=== PATIENT | female | born 1960 | race Caucasian/White ===

== ENCOUNTER 2017-06-26 08:30 | Outpatient (CLI) | payer BC, MEDICARE ==
[2017-06-26 10:38] LABS: #Basophils 0.1 thou/uL (0.0-0.2); #Eosinphils 0.3 thou/uL (0.0-0.7); #Lymphocytes 1.5 thou/uL (1.20-3.40); #Monocytes 0.3 thou/uL (0.11-0.59); #Neutrophils 2.9 thou/uL (1.40-6.50); %Basophils 1.2 % (0.0-1.0); %Eosinophils 6.4 % (0.0-10.0); %Lymphocytes 29.4 % (21.0-51.0); %Monocytes 6.2 % (0.0-10.0); Hematocrit 44.3 % (36.0-47.0); Mean Platelet Volume 8.5 fL (7.4-10.4); Red Blood Cell (RBC) Count 5.14 mill/uL (4.20-5.40)
[2017-06-26 11:00] LABS: Anion Gap 14 mmol/L (10-20); BUN (Urea Nitrogen) 25 mg/dL (9.8-20.1); Calc. Creatinine Clearance 0 mL/min (70-130); Calcium 9.8 mg/dL (7.8-10.44); Carbon Dioxide 28 mmol/L (22-29); Chloride 103 mmol/L (98-107); Estimated GFR-MDRD 71
== END 2017-06-26 08:31 | disposition home or self-care (01) ==
LOC: LABBT 08:30
PROVIDERS: ATTEND Neurological Surgery
DX: Z01.812 Encounter for preprocedural laboratory examination (principal); M43.16 Spondylolisthesis, lumbar region
CPT/HCPCS: 80048; 85025; 85610; 85730; 93005; 93010

== ENCOUNTER 2017-06-26 08:30 | Inpatient (IN) | payer BC, MEDICARE ==
--- NOTE | 2017-06-24 08:35 | HP ---
HISTORY OF PRESENT ILLNESS: Ms. Rosario is a 57-year-old female who presents with low back pain an d left-sided numbness, tingling and pain in the L5 dermatome. She has had this pain for about 2 year s, but the pain has gotten worse over the past 4 months. She has been walking with a cane for suppor t for about 3 years. She has had [address] Harris over the past 2 years , which had helped with some of the back pain. On exam I did not appreciate any weakness in the left leg on exam and she has some relief of pain whe n taking analgesics and gabapentin. The pain is exacerbated with standing, walking and lying flat. She has had a right hemilaminectomy and microdiskectomy with Dr. Barry in 03/2013. IMAGING: MRI of the lumbar spine and flexion, extension x-rays from [facility]. REVIEW OF SYSTEMS: Ten-point review of systems completed, is otherwise negative unless stated in the above HPI. PAST MEDICAL HISTORY: Retinopathy, heart trouble, chest pain, thyroid, diabetes mellitus, heartburn, reflux, IBS, knee pain, asthma, osteoarthritis, hip pain, gastroparesis and depression. PAST SURGICAL HISTORY: Right hemilaminectomy at L4-L5 with microdiskectomy [place] [address] Edvin field. Cataracts left eye and extricated blood from eye. HOSPITALIZATIONS: Diabetic ketoacidosis. FAMILY HISTORY: Father is at 56 years old. Mother is alive at 74 years old. She has [address] They have a family history of heart disease, hypertension, arthritis, and low back pain. SOCIAL HISTORY: The patient is a nonsmoker. She does not use tobacco or alcohol or any illicit drug s. 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 No alcohol or nicotine use reported. MEDICATIONS: 1. Sertraline HCL 100 mg tablet 1 tablet orally once a day. 2. Lyrica 75 mg capsule 1 capsule in the a.m. and 2 in the p.m. 3. Singulair 10 mg tablet orally. 4. Albuterol sulfate HFA. 5. Celebrex 200 mg capsule 1 capsule orally twice a day. 6. Vitamin D. 7. Humalog. 8. Invokana 300 mg tablet 1 tablet orally once daily. 9. Dexilant 60 mg capsule delayed release. 10. Furosemide 40 mg tablet 1 tablet orally once a day. 11. Topamax 500 mg tablet 1 tablet orally 3 times a day. 12. Atorvastatin calcium 40 mg tablet 1 tablet orally once a day. 13. Limbrel 500 mg capsule 1 capsule orally q.12 hours. ALLERGIES: SULFA DRUGS. PHYSICAL EXAMINATION: HEENT: Normocephalic, atraumatic. Hearing intact. Moist mucous membranes. Trachea is midline. EYES: Pupils are equal and reactive to light. Extraocular muscles are intact. Sclerae is white, no nicteric. PSYCHIATRIC: Normal mood and affect. CARDIOVASCULAR/CARDIOPULMONARY: Regular rate and rhythm, normal S1, S2 heart sounds. No distal cya nosis or clubbing noted. Intact pedal pulses bilaterally. MUSCULOSKELETAL: Lower extremities, 5/5 strength in bilateral iliopsoas, quadriceps, hamstrings, rig ht tibialis anterior and extensor hallucis longus. Sensory deficits in the left L5 dermatome tender to palpation in the midline lumbar spine and over the bilateral SI joints. RESPIRATORY: Even respirations, good effort all lung gavin are clear with no wheezing or crackles. NEUROLOGIC: Cranial nerves II-XII are grossly intact. Speech is fluent. She answers my questions a ppropriately. The patient has antalgic gait and station and walks with a cane. ASSESSMENT: 1. Spondylolisthesis, lumbar region. 2. Lumbar radiculopathy, lumbago with sciatica, left side. 3. Chronic pain. PLAN: Dr. Barry offered a redo laminectomy and TLIF at L4-L5 for her leg and spondylolisthesis. She also has a synovial cyst. We reviewed the risks, benefits, and possible complications of sharlar y with Ms. Rosario and she understands the risks fully and would like to proceed with the operation .
[2017-06-26 08:58] VITALS: BMI 41.1
[2017-06-30] MEDS ORDERED: CEFAZOLIN/Water 2 GM/20 ML SYRINGE ONE (05:58)
[2017-06-30] MEDS ORDERED: Sodium Chloride 0.9% 20 ML ONE (06:17)
[2017-06-30] MEDS ORDERED: Thrombin 5000 UNITS/5 ML VIAL ONE (06:17)
[2017-06-30] MEDS ORDERED: Clindamycin/D5W 900 mg/50 ml Premix Bag ONE ×2 (06:26→13:50)
[2017-06-30] MEDS ORDERED: Levofloxacin 500 mg/D5W 100 ml Premix Bag ONE (06:27)
[2017-06-30] MEDS ORDERED: Midazolam HCl 2 mg/2 ml Vial ONE (06:35)
[2017-06-30] MEDS ORDERED: Famotidine/PF 20 mg/2ml Vial ONE (06:45)
[2017-06-30] MEDS ORDERED: Phenylephrine 10 MG/NS 250 ML 250 ML ONE (06:45)
[2017-06-30] MEDS ORDERED: Albumin 5% 500 ML ONE (06:45)
[2017-06-30] MEDS ORDERED: Fentanyl 250 MCG/5 ML VIAL ONE (06:58)
[2017-06-30] MEDS ORDERED: Bupivacaine/Epinephrine 0.25% 30 ML VIAL ONE (07:44)
[2017-06-30] MEDS ORDERED: Insulin Regular 300 UNITS/3 ML VIAL ONE (09:02)
[2017-06-30] MEDS ORDERED: PHENYLEPHRINE-NS 100 MCG/ML 10 ML SYRINGE ONE ×2 (09:53→17:01)
[2017-06-30] MEDS ORDERED: Meperidine HCl/PF 25 MG/ML VIAL SLOW IVP PRN (10:01)
[2017-06-30] MEDS ORDERED: Promethazine HCl 25 MG/ML VIAL IM PRN (10:01)
[2017-06-30] MEDS ORDERED: Morphine Sulfate 2 MG/ML SYRINGE SLOW IVP PRN (10:01)
[2017-06-30] MEDS ORDERED: HYDROmorphone 2 MG/ML VIAL SLOW IVP PRN (10:01)
[2017-06-30] MEDS ORDERED: Ondansetron HCl/PF 4 MG/2 ML Vial IVP PRN ×2 (10:01→11:26)
[2017-06-30] MEDS ORDERED: Promethazine HCl 25 MG/ML VIAL SLOW IVP PRN (10:01)
[2017-06-30] MEDS ORDERED: Morphine 4 MG/ML VIAL SLOW IVP PRN ×2 (11:26)
[2017-06-30] MEDS ORDERED: Acetaminophen/Codeine 30-300mg Tablet PO PRN (11:26)
[2017-06-30] MEDS ORDERED: Cyclobenzaprine 10 MG TAB PO PRN (11:26)
[2017-06-30] MEDS ORDERED: SUBCUTANEOUS INSULIN PUMP MC SCH (11:30)
[2017-06-30] MEDS ORDERED: Albuterol Sulfate 2.5 mg/3 ml Neb NEB PRN (11:30)
[2017-06-30] MEDS ORDERED: Fentanyl 100 MCG/2 ML VIAL ONE ×2 (11:56→12:15)
--- NOTE | 2017-06-30 12:50 | OP ---
DATE OF SURGERY: 06/30/2017 SURGEON: Stef Barry M.D. MAIL SORTING SUPERVISOR: Tobias Abel PA-C. PREOPERATIVE INDICATION: Prevent neurological deterioration. PREOPERATIVE DIAGNOSES: Prior L4-L5 surgery for synovial cyst, L4-L5 unstable spondylolisthesis with intermittent L5 radiculopathies. POSTOPERATIVE DIAGNOSES: Prior L4-L5 surgery for synovial cyst, L4-L5 unstable spondylolisthesis with intermittent L5 radiculopathies. OPERATIVE PROCEDURES: Reopening lumbar incision, repeat laminectomy, and foraminotomy L4-L5, transforaminal lumbar interbody arthrodesis L4-L5, placement of intervertebral biomechanical device L4-L5, pedicle screw and natasha instrumentation L4-L5, posterolateral arthrodesis L4-L5, local morselized autograft, morselized allograft, and operating microscope. PREOPERATIVE MEDICATIONS: Ancef 2 grams IV. DRAIN NUMBER: Zero. DRAIN TYPE: None. OPERATIVE DICTATION: The patient was brought to the operating room. General endotracheal anesthesia was induced. The patient was positioned prone on the Arun frame with her head, chest, and hips supported by appropriate attachments for the Arun frame. A lateral fluoro radiograph confirmed that the previous incision would give us access to the L4-5 segments of the lumbar spine. The lumbar skin was sterilely prepped and draped. We reopened the previous incision and extended superiorly. We controlled bleeding with bipolar and monopolar cautery. We used monopolar cautery to dissect through subcutaneous scar tissue to the thoracodorsal fascia. We incised the fascia in the midline and reflected the paraspinal muscles off the spinous process and lamina of L4 and L5. A self-retaining retractor was placed. A lateral fluoro radiograph confirmed the levels upon which we were operating. We then carried our dissection over the L3-L4 and L4-L5 facet joints laterally to expose the L4 and L5 transverse processes on both sides. We used an Adson rongeur to remove the remnant of L4 lamina. We removed the superior portion of L5 lamina. Kerrison rongeurs were used to fashion a complete laminectomy. Posterior elements were removed at L4 until we decompressed all the way into the foramen on both sides with L4 nerve roots and L5 nerve roots were decompressed. Medial facetectomies at L4-L5 and we performed foraminotomies over those roots. With the neural elements well decompressed, we turned our attention to the spinal instability. Through the left L4-L5 foramen, we accessed the intervertebral space. We incised the disk space and removed disk contents using curettes and rongeurs. The operating microscope was used for the end of our decompression and the beginning of arthrodesis. We continued with microsurgical techniques to remove the intervertebral disk. We prepared the endplates for grafting with curettes and a bone rasp, and we measured the height of the interspace to 11 mm. An 11-mm PEEK graft was brought into the field. Our laminectomy bone was carefully morselized on the back table after all soft tissue was removed and the morselized bone added to demineralized bone matrix as our fusion substrate. This substrate was placed in the center of the PEEK graft and the PEEK graft was advanced into the interspace under radiographic guidance to the appropriate depth. We turned our attention to pedicle screw instrumentation. The operating microscope was taken out of the field. Using bony anatomic landmarks, palpation of the medial portion of the pedicles and a lateral fluoro radiograph as guidance, we chose entry points for pedicle screws at L4 and L5. We advanced these entry points using a bone awl into the vertebral bodies. We tapped the trajectories and found them completely encased in bone. We placed 6.5-mm diameter screws into L4 and L5 and generated a 360- degree image set using isocentric C-arm. Imaging confirmed adequate position of our pedicle screw instrumentation. We then irrigated copiously with bacitracin irrigation. We decorticated the transverse processes of L4 and L5 bilaterally and left demineralized bone matrix and morselized autograft over the decorticated bone as are posterolateral fusion substrate. The rods were brought in the screw heads and caps were tightened over the rods. We used gentle compression across the interspace to keep our interbody graft in place. Using a [id number] mechanism, we ensured adequate tightness of our caps. We checked all 4 nerve roots and found them still well decompressed. We irrigated copiously with bacitracin irrigation in the center of the wound. We applied vancomycin powder, and we closed the wound in anatomic layers. We applied a sterile dressing. This was a clean case and no contamination. RITESH
[2017-06-30] MEDS: Sodium Chloride 0.9% 1,000 ML IV SCH (13:05)
[2017-06-30] MEDS ORDERED: Morphine 4 MG/ML VIAL ONE (13:27)
[2017-06-30] MEDS: Clindamycin/D5W 900 MG in Premix Bag 1 BAG IVPB SCH ×2 (13:56→21:16)
[2017-06-30] MEDS ORDERED: Metoclopramide HCl 10 MG TAB PO SCH ×2 (15:00→18:45)
[2017-06-30] MEDS ORDERED: Acetaminophen/Codeine 30-300mg Tablet ONE ×2 (15:40→15:41)
[2017-06-30] MEDS: Topiramate 100 MG TAB PO SCH ×2 (15:47→21:16)
[2017-06-30] MEDS: Acetaminophen/Codeine 30-300mg Tablet PO PRN ×3 (15:47→22:16)
[2017-06-30] MEDS ORDERED: Propofol 200 MG/20 ML VIAL ONE (17:01)
[2017-06-30] MEDS ORDERED: Dexamethasone 20 MG/5 ML VIAL ONE (17:01)
[2017-06-30] MEDS ORDERED: Ondansetron HCl/PF 4 MG/2 ML Vial ONE (17:01)
[2017-06-30] MEDS ORDERED: Lidocaine 1% PF 5 ML VIAL ONE (17:01)
[2017-06-30] MEDS ORDERED: ePHEDrine/0.9% NaCl/PF SYRINGE 50 mg/10 ml ONE (17:01)
[2017-06-30] MEDS ORDERED: Vecuronium 10 MG VIAL ONE (17:01)
[2017-06-30] MEDS ORDERED: Glycopyrrolate 0.2 MG/ML 5 ML SYRINGE ONE (17:01)
[2017-06-30] MEDS ORDERED: Metoclopramide HCl 10 MG/2 ML VIAL ONE (17:01)
[2017-06-30] MEDS ORDERED: [UNRECOGNIZED DRUG - OTHER] PO SCH (21:00)
[2017-06-30] MEDS: Pregabalin 75 MG CAP PO SCH (21:15)
[2017-06-30] MEDS: Losartan Potassium 25 MG TAB PO SCH (21:15)
[2017-06-30] MEDS: Montelukast Sodium 10 mg Tablet PO SCH (21:16)
[2017-07-01] MEDS: Sodium Chloride 0.9% 1,000 ML IV SCH ×3 (00:10→20:53)
[2017-07-01] MEDS: Acetaminophen/Codeine 30-300mg Tablet PO PRN ×5 (05:35→20:51)
[2017-07-01] MEDS: Levothyroxine Sodium 150 MCG TAB PO SCH (05:36)
--- NOTE | 2017-07-01 08:01 | PRG ---
DATE OF SERVICE: 07/01/2017 Ms. Rosario is a 57-year-old female who I saw in her room this morning. She is status post 1 day f rom a lumbar decompression and fusion. Overnight, there have been no acute events. Her vital signs have been stable. Her blood sugar is now well controlled that she has turned her insulin pump on. S he has gotten up several times to use the bathroom, walked to the bathroom. She has also received an LSO brace that she has in place for walking. I took the Medipore tape off of her incision this morn ing and had her nurse redress the incision. Incision was clean, dry, and intact with vertical mattre ss sutures. If she does well with physical therapy today I will put in discharge plan and she can go home this afternoon. If there are any further questions, please feel free to contact Neurosurgery.
--- NOTE | 2017-07-01 08:18 | PRG ---
DATE OF SERVICE: 07/01/2017 Ms. Rosario is 1 day out from redo decompression and fusion at L4-L5. Her legs feel better, but th e back is sore. She was able to ambulate yesterday with some assistance and a brace on and she has cristhian espinosa out of bed already this morning to go to the bathroom. Her dressing has been reapplied. Her v ital signs are stable. Neurologic function in lower extremities is normal. My plan for Ms. Omari motley is to have her diabetes managed by her primary care team or Family Medicine. I would like physical therapy to work with her today. When she is safe for activities of daily living she can be discharg ed. She is at high risk for perioperative infection given her body habitus and her diabetes. I am cristhian soares to continue the Levaquin once a day.
[2017-07-01] MEDS: Pregabalin 75 MG CAP PO SCH ×2 (08:43→20:50)
[2017-07-01] MEDS: Topiramate 100 MG TAB PO SCH ×3 (08:44→20:49)
[2017-07-01] MEDS: Loratadine 10 MG TAB PO SCH (08:45)
[2017-07-01] MEDS: Cholecalciferol (Vitamin D3) 400 UNITS TAB PO SCH (08:45)
[2017-07-01] MEDS: Lactinex Tablet PO SCH (08:45)
[2017-07-01] MEDS: Furosemide 40 MG TAB PO SCH (08:45)
[2017-07-01] MEDS: Metoclopramide HCl 10 MG TAB PO SCH ×3 (08:45→17:24)
[2017-07-01] MEDS ORDERED: (Canagliflozin [Invokana] 300 MG) PO SCH (09:00)
[2017-07-01] MEDS: Ketotifen Fumarate 0.025% Ophth Soln 5 ml Bottle L EYE SCH (12:50)
--- NOTE | 2017-07-01 13:34 | PDOC.PN ---
- Subjective Encounter Start Date: 07/01/17 Encounter Start Time: 08:00 Pt seen for management of medical comorbidities, including hypothyroidism. Denies chest pain, shortness of breath, fevers or chills. - Objective MAR Reviewed: Yes Vital Signs & Weight: Vital Signs (12 hours) Temp Pulse Resp BP Pulse Ox 07/01/17 11:35 98.1 F 73 12 115/73 98 07/01/17 08:45 98.5 F 76 16 97 07/01/17 07:35 98.5 F 76 16 115/74 97 07/01/17 04:10 98.2 F 77 16 103/67 97 Weight Weight 255 lb I&O: 06/30/17 07/01/17 07/02/17 06:59 06:59 06:59 Intake Total 1075 Balance 1075 Additional Labs: Accuchecks 06/30/17 06/30/17 06/30/17 10:24 09:44 09:01 POC Glucose 229 H 312 H 304 H Phys Exam - Physical Examination Morbid obesity HEENT: moist MMs, oral pharynx no lesions Neck: supple Respiratory: clear to auscultation bilateral Cardiovascular: RRR Gastrointestinal: soft, non-tender Musculoskeletal: pulses present s/p back surgery Neurological: moves all 4 limbs Psychiatric: normal affect Skin: no rash Dx/Plan (1) Hypothyroidism Code(s): E03.9 - HYPOTHYROIDISM, UNSPECIFIED Status: Chronic (2) Diabetes mellitus Code(s): E11.9 - TYPE 2 DIABETES MELLITUS WITHOUT COMPLICATIONS Status: Chronic (3) GERD (gastroesophageal reflux disease) Code(s): K21.9 - GASTRO-ESOPHAGEAL REFLUX DISEASE WITHOUT ESOPHAGITIS Status: Chronic (4) IBS (irritable bowel syndrome) Status: Chronic (5) Asthma Code(s): J45.909 - UNSPECIFIED ASTHMA, UNCOMPLICATED Status: Chronic - Plan PT/OT, out of bed/ambulate * . Continue synthroid. Pt has continuous glucose monitoring and insulin pump, continue. Asthma stable. Continue PPI. DVT prophylaxis and pain management per neurosurgery service. Review of Systems - Review of Systems Respiratory: negative: Cough, Dry, Shortness of Breath, Hemoptysis, SOB with Excertion, Pleuritic Pain, Sputum, Wheezing Cardiovascular: negative: Chest Pain, Palpitations, Orthopnea, Paroxysmal Noc. Dyspnea, Edema, Light Headedness - Medications/Allergies Allergies/Adverse Reactions: Allergies Allergy/AdvReac Type Severity Reaction Status Date / Time amoxicillin [Amoxicillin] Allergy Verified 06/26/17 09:01 Menno And Derivatives Allergy Verified 06/26/17 09:01 egg Allergy Verified 06/26/17 09:01 iodine Allergy Verified 06/26/17 09:01 latex Allergy Verified 06/26/17 09:01 sulfur [From Sulfur-8] Allergy Verified 06/26/17 09:01 Medications: Current Medications Acetaminophen/Codeine Phosphate (Tylenol #3) 1 tab PO Q3H PRN PRN Reason: Mild Pain (1-3) Acetaminophen/Codeine Phosphate (Tylenol #3) 2 tab PO Q3H PRN PRN Reason: Moderate Pain (4-6) Last Admin: 07/01/17 12:49 Dose: 2 tab Acidophilus (Floranex) 1 tab PO DAILY [facility] Last Admin: 07/01/17 08:45 Dose: 1 tab Albuterol Sulfate (Ventolin) 2.5 mg NEB TID PRN PRN Reason: ASTHMA Cholecalciferol (Vitamin D) 400 units PO DAILY [facility] Last Admin: 07/01/17 08:45 Dose: 400 units Cyclobenzaprine HCl (Flexeril) 10 mg PO Q8H PRN PRN Reason: Muscle Spasm Furosemide (Lasix) 40 mg PO DAILY [facility] Last Admin: 07/01/17 08:45 Dose: 40 mg Glucagon (Glucagon) 1 mg SC ONE PRN PRN Reason: ASDIR Stop: 07/10/17 11:31 Sodium Chloride (Normal Saline 0.9%) 1,000 mls @ 75 mls/hr IV .[id number] [facility] Last Admin: 07/01/17 00:10 Dose: Not Given Ketotifen Fumarate (Zaditor 0.025% Ophth Soln) 1 drop L EYE DAILY [facility] Last Admin: 07/01/17 12:50 Dose: 1 drop Levofloxacin (Levaquin) 500 mg PO 0600 [facility] Levothyroxine Sodium (Synthroid) 150 mcg PO 0600 [facility] Last Admin: 07/01/17 05:36 Dose: 150 mcg Loratadine (Claritin) 10 mg PO DAILY [facility] Last Admin: 07/01/17 08:45 Dose: 10 mg Losartan Potassium (Cozaar) 25 mg PO HS [facility] Last Admin: 06/30/17 21:15 Dose: 25 mg Metoclopramide HCl (Reglan) 5 mg PO 0800,1100,1700 [facility] Last Admin: 07/01/17 12:49 Dose: 5 mg Montelukast Sodium (Singulair) 10 mg PO QPM [facility] Last Admin: 06/30/17 21:16 Dose: 10 mg Morphine Sulfate (Morphine) 2 mg SLOW IVP Q1H PRN PRN Reason: Moderate Breakthrough Pain Last Admin: 06/30/17 13:28 Dose: 2 mg Morphine Sulfate (Morphine) 4 mg SLOW IVP Q1H PRN PRN Reason: Severe Breakthrough Pain (Baicalin/Catechin [ (Limbrel] 500 Mg)) 500 mg PO BID [facility] (Canagliflozin [ (Invokana] 300 Mg)) 300 mg PO DAILY [facility] (Subcutaneous Insulin Pump [ Insulin Pump] 1 Each ) 1 each ASDIR [facility] Ondansetron HCl (Zofran) 4 mg IVP Q6H PRN PRN Reason: Nausea Pantoprazole Sodium (Protonix) 40 mg PO DAILY [facility] Last Admin: 07/01/17 08:44 Dose: 40 mg Pregabalin (Lyrica) 75 mg PO BID [facility] Last Admin: 07/01/17 08:43 Dose: 75 mg Rosuvastatin Calcium (Crestor) 40 mg PO HS [facility] Last Admin: 06/30/17 21:15 Dose: 40 mg Sertraline HCl (Zoloft) 100 mg PO DAILY [facility] Last Admin: 07/01/17 08:45 Dose: 100 mg Sodium Chloride (Flush - Normal Saline) 10 ml IVF PRN PRN PRN Reason: Saline Flush Topiramate (Topamax) 50 mg PO TID [facility] Last Admin: 07/01/17 08:44 Dose: 50 mg
[2017-07-01] MEDS ORDERED: hydrALAZINE 20 MG/ML VIAL SLOW IVP PRN (13:38)
[2017-07-01] MEDS: Losartan Potassium 25 MG TAB PO SCH (20:50)
[2017-07-01] MEDS: Montelukast Sodium 10 mg Tablet PO SCH (20:50)
[2017-07-02] MEDS: Levothyroxine Sodium 150 MCG TAB PO SCH (06:09)
[2017-07-02] MEDS: Acetaminophen/Codeine 30-300mg Tablet PO PRN ×3 (06:11→20:47)
--- NOTE | 2017-07-02 06:52 | DIS ---
DATE OF ADMISSION: 06/30/2017 DATE OF DISCHARGE: 07/02/2017 ADMISSION DIAGNOSES: Prior L4-L5 surgery with synovial cyst, L4-L5 unstable spondylolisthesis and in termittent L5 radiculopathies. DISCHARGE DIAGNOSES: Prior L4-L5 surgery with synovial cyst, L4-L5 unstable spondylolisthesis and in termittent L5 radiculopathies. DISCHARGE CONDITION: The patient is stable. She is able to ambulate on her own in the hallway witho ut problems. She also has no problems in urinating and having bowel movements and tolerating a regul ar diet. CONSULTATIONS: Physical Therapy, [facility]. PROCEDURES: Reopening of the lumbar incision, repeat laminectomy and foraminotomy at L4-L5, transfor aminal lumbar interbody arthrodesis at L4-L5, placement of intervertebral biomechanical device at L4- L5, pedicle screw and natasha instrumentation L4-L5, posterior lateral arthrodesis at L4-L5, local morsel ized autograft, and local morselized allograft, and operating microscope. All images were taken intraoperatively. BRIEF HISTORY OF PRESENT ILLNESS: Ms. Rosario is a 57-year-old female who [facility] with low back pain and left-sided numbness, tingling, pain in the L5 dermatome. She has had the pain for about 2 years, but it has gotten worse in the past 4 months. She has had 2 radiofrequen cy ablations and she has modified her daily activities; however, none of these have helped permanentl y relieve her pain. She opted for neurosurgical intervention to help with her leg pain. HOSPITAL COURSE: Hospital course was unremarkable. She was able to tolerate regular diet, walk in [facility] with physical therapy and by herself. She has been able to walk to the restroom in her room by herself and to urinate and have bowel movement. The Internal Medicine doctors were consulted at the hospital to control her blood sugar. DISCHARGE PHYSICAL EXAMINATION: HEENT: Normocephalic, atraumatic. Hearing intact. Moist mucous membranes. Trachea midline. EYES: Pupils are equal and reactive to light. Extraocular muscles are intact. Sclerae is white, no nicteric. CARDIOVASCULAR: The patient has regular rate and rhythm, normal S1, S2 heart sounds. No distal cyan osis or clubbing. RESPIRATORY: The patient has bilateral symmetric chest rise. Appears to be in no shortness breath. NEUROLOGIC: Cranial nerves II-XII are grossly intact. Speech is fluent. She answers my questions a ppropriately. The pain in her legs is gone, whenever she is walking and she still has some incisiona l pain over the lumbar area. 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 She is to wear the LSO brace when si tting upright and ambulating. DIET: The patient can have a heart healthy diabetic diet. CURRENT MEDICATIONS: 1. Sertraline HCL 100 mg tablet 1 tablet oral once a day. 2. Lyrica. 3. Singulair. 4. Albuterol sulfate HFA. 5. Celebrex. 6. Vitamin D. 7. Humalog. 8. Invokana. 9. Dexilant. 10. Furosemide. 11. Topamax. 12. Atorvastatin calcium. 13. Limbrel.
--- NOTE | 2017-07-02 07:21 | PRG ---
DATE OF SERVICE: 07/02/2017 Ms. Rosario is here on her second postoperative day after decompression and fusion of lumbar spine. Yesterday her back was quite sore. Her oxygen saturation was done at 90% when she was put on oxyge n by nasal cannula. She is encouraged to use [place] and mobilize. Yesterday, Ms. Rosario did man age to get out in the hallway and walk around the nurses station. She used some stairs. She learned how to put on and off her back brace, get in and out of bed. She feels more comfortable going home today. She would like to wait until the lunch to see how she feels and I think that is reasonable. In the meantime, we will wean her off her oxygen. Her body habitus, her recent anesthesia and her na rcotic use are all conspiring to make her oxygen low, but hopefully with an incentive spirometry we c an get it back up.
[2017-07-02] MEDS: Ketotifen Fumarate 0.025% Ophth Soln 5 ml Bottle L EYE SCH (09:45)
[2017-07-02] MEDS: Metoclopramide HCl 10 MG TAB PO SCH ×3 (09:45→18:21)
[2017-07-02] MEDS: Furosemide 40 MG TAB PO SCH (09:46)
[2017-07-02] MEDS: Topiramate 100 MG TAB PO SCH ×3 (09:46→20:41)
[2017-07-02] MEDS: Pregabalin 75 MG CAP PO SCH ×2 (09:47→20:41)
[2017-07-02] MEDS: Cholecalciferol (Vitamin D3) 400 UNITS TAB PO SCH (09:47)
[2017-07-02] MEDS: Lactinex Tablet PO SCH (09:47)
[2017-07-02] MEDS: Loratadine 10 MG TAB PO SCH (09:48)
[2017-07-02] MEDS ORDERED: Docusate 100 MG CAP PO SCH (13:15)
[2017-07-02] MEDS: Sodium Chloride 0.9% 1,000 ML IV SCH (18:20)
[2017-07-02] MEDS: Losartan Potassium 25 MG TAB PO SCH (20:42)
[2017-07-02] MEDS: Montelukast Sodium 10 mg Tablet PO SCH (20:42)
[2017-07-02 20:50] VITALS: BP 96/60; TEMP 98
== END 2017-07-02 21:15 | disposition home or self-care (01) | DRG 460 ==
LOC: SURG A 06-30 05:44
PROVIDERS: ADMIT Neurological Surgery; ATTEND Neurological Surgery
PROC: 0SG00AJ Fusion of Lumbar Vertebral Joint with Interbody Fusion Device, Posterior Approach, Anterior Column, Open Approach (ICD-10-PCS; principal; 2017-06-30)
PROC: 0SB20ZZ Excision of Lumbar Vertebral Disc, Open Approach (ICD-10-PCS; 2017-06-30)
DX: M43.16 Spondylolisthesis, lumbar region (principal); Z68.41 Body mass index [BMI] 40.0-44.9, adult; I10 Essential (primary) hypertension; E66.01 Morbid (severe) obesity due to excess calories; F32.9 Major depressive disorder, single episode, unspecified; E11.9 Type 2 diabetes mellitus without complications; M71.30 Other bursal cyst, unspecified site; K21.9 Gastro-esophageal reflux disease without esophagitis; M19.90 Unspecified osteoarthritis, unspecified site; M54.16 Radiculopathy, lumbar region; E78.5 Hyperlipidemia, unspecified
CPT/HCPCS: 36416; 76001; A4216; C1713; C1768; G8978-GP-CK; G8979-GP-CK; G8980-GP-CK; J0131; J1100; J1815; J1956; J2001; J2250; J2270; J2405; J2704; J2765; J3010; J3370; J3490; P9045; S0028

== ENCOUNTER 2017-08-21 09:50 | Outpatient (CLI) | payer BC, MEDICARE | END 2017-08-21 09:51 | disposition home or self-care (01) | LOC: BICRAD 09:50 | PROVIDERS: ATTEND Neurological Surgery | DX: M54.16 Radiculopathy, lumbar region (principal); M43.16 Spondylolisthesis, lumbar region; Z98.1 Arthrodesis status | CPT/HCPCS: 72100 ==

== ENCOUNTER 2017-11-27 08:35 | Outpatient (CLI) | payer BC, MEDICARE | END 2017-11-27 08:36 | disposition home or self-care (01) | LOC: BICRAD 08:35 | PROVIDERS: ATTEND Physician Assistant | DX: R05 Cough (principal) | CPT/HCPCS: 71046 ==

== ENCOUNTER 2018-09-14 15:22 | Outpatient (CLI) | payer BC, MEDICARE ==
--- NOTE | 2018-09-14 16:37 | BD ---
DEXA BONE DENSITY STUDY: HISTORY: Osteopenia. Prior surgery in lower back. TECHNIQUE: The lumbar spine was not scanned. LUMBAR SPINE MEAN BMD (g/cm2) T-SCORE RIGHT FEMORAL NECK 0.692 -1.4 TOTAL 0.900 -0.3 Evidence of osteopenia with increased risk for fracture. LEFT FEMORAL NECK 0.619 -2.1 TOTAL 0.824 -1.0 Evidence of osteopenia with increased risk for fracture. IMPRESSION: Femoral neck bone density has decreased when compared to the prior study of 09/06/2013, at which time the left femoral neck T-score was -0.6. Fracture score is not recorded because the patient is treat ed for osteoporosis. POS: TPC
== END 2018-09-14 15:23 | disposition home or self-care (01) ==
LOC: BICMAMMO 15:22
PROVIDERS: ATTEND Internal Medicine
DX: Z12.31 Encounter for screening mammogram for malignant neoplasm of breast (principal); M85.89 Other specified disorders of bone density and structure, multiple sites; R92.1 Mammographic calcification found on diagnostic imaging of breast; Z80.3 Family history of malignant neoplasm of breast
CPT/HCPCS: 77063; 77067; 77080

== ENCOUNTER 2020-02-15 08:01 | Outpatient (CLI) | payer BC, MEDICARE ==
--- NOTE | 2020-02-15 08:59 | BD ---
EXAM: DEXA bone density examination HISTORY: 59-year-old postmenopausal female for screening COMPARISON: 09/14/2018 FINDINGS: Right femoral neck--bone mineral density0.664; T score -1.7 Total proximal right femur--bone mineral density 0.890; T score -0.4 Left femoral neck--bone mineral density0.608; T score -2.2 Total proximal left femur--bone mineral density 0.787; T score -1.3 IMPRESSION: Osteopenia. When compared to the prior examination, the bone density in the left hip has decreased 4%.
--- NOTE | 2020-02-15 09:27 | MMO ---
Bilateral MAMMO Bilat Screen [facility]. CLINICAL HISTORY: Patient is 59 years old and is seen for screening. The patient has no family history of breast cancer. The patient has no personal history of cancer. VIEWS: The views performed were: bilateral craniocaudal with tomosynthesis and bilateral mediolateral oblique with tomosynthesis. FILMS COMPARED: The present examination has been compared to prior imaging studies performed at [facility] on 01/31/2015, 03/05/2016, 04/28/2017 and 09/14/2018. This study has been interpreted with the assistance of computer-aided detection. MAMMOGRAM FINDINGS: There are scattered fibroglandular densities. Benign calcifications are noted bilaterally. There are no suspicious masses, suspicious calcifications, or new areas of architectural distortion. IMPRESSION: THERE IS NO MAMMOGRAPHIC EVIDENCE OF MALIGNANCY. A ROUTINE FOLLOW-UP MAMMOGRAM IN 1 YEAR IS RECOMMENDED. THE RESULTS OF THIS EXAM WERE SENT TO THE PATIENT. ACR BI-RADS Category 2 - Benign finding MAMMOGRAPHY NOTE: 1. A negative mammogram report should not delay a biopsy if a dominant of clinically suspicious mass is present. 2. Approximately 10% to 15% of breast cancers are not detected by mammography. 3. Adenosis and dense breasts may obscure an underlying neoplasm. Reported by: GILBERTO MASON MD Electonically Signed: [id number]
== END 2020-02-15 08:02 | disposition home or self-care (01) ==
LOC: BICMAMMO 08:01
PROVIDERS: ATTEND Family Medicine
DX: Z12.31 Encounter for screening mammogram for malignant neoplasm of breast (principal); M81.0 Age-related osteoporosis without current pathological fracture; M85.852 Other specified disorders of bone density and structure, left thigh; M85.851 Other specified disorders of bone density and structure, right thigh
CPT/HCPCS: 77063; 77067; 77080

== ENCOUNTER 2020-08-07 08:21 | Outpatient (CLI) | payer BC, MEDICARE ==
--- NOTE | 2020-08-07 08:42 | RAD ---
XR Foot Lt 3 View STANDARD History: Pain Comparison: None. Findings: No acute displaced fracture or alignment. Fifth metatarsal tuberosity is intact. Moderate dorsal calcaneal spur. Mild demineralization. Moderate narrowing of the navicular intermediate cuneiform joint. The Lisfranc interval widening. Moderate vascular calcifications. Impression: Moderate degenerative change of the midfoot. No acute osseous abnormality.
== END 2020-08-07 08:22 | disposition home or self-care (01) ==
LOC: BICRAD 08:21
PROVIDERS: ATTEND Internal Medicine Rheumatology
DX: M79.672 Pain in left foot (principal); M19.072 Primary osteoarthritis, left ankle and foot

== ENCOUNTER 2020-10-30 08:10 | Outpatient (CLI) | payer BC, MEDICARE | END 2020-10-30 08:11 | disposition home or self-care (01) | LOC: BICRAD 08:10 | PROVIDERS: ATTEND Family Medicine | DX: M79.671 Pain in right foot (principal); M19.071 Primary osteoarthritis, right ankle and foot ==

== ENCOUNTER 2022-02-12 13:33 | Outpatient (CLI) | payer BC, MEDICARE | END 2022-02-12 13:34 | disposition home or self-care (01) | LOC: BICMRI 13:33 | PROVIDERS: ATTEND Family Medicine | DX: R51.9 Headache, unspecified (principal) | CPT/HCPCS: 70551 ==

== ENCOUNTER 2022-03-06 07:32 | Outpatient (CLI) | payer BC, MEDICARE | END 2022-03-06 07:33 | disposition home or self-care (01) | LOC: LABBT 07:32 | PROVIDERS: ATTEND Student in an Organized Health Care Education/Training Program | DX: Z01.818 Encounter for other preprocedural examination (principal); M31.6 Other giant cell arteritis; M51.9 Unspecified thoracic, thoracolumbar and lumbosacral intervertebral disc disorder; R70.0 Elevated erythrocyte sedimentation rate; E11.319 Type 2 diabetes mellitus with unspecified diabetic retinopathy without macular edema; Z20.822 Contact with and (suspected) exposure to COVID-19 | CPT/HCPCS: 85014; 87811; 93005; 93010 ==

== ENCOUNTER 2022-03-11 07:24 | Day surgery (SDC) | payer BC, MEDICARE ==
[2022-03-07 14:57] VITALS: BMI 41.5
[2022-03-11] MEDS ORDERED: Lidocaine 1% MPF 2 ML VIAL ONE (08:03)
[2022-03-11] MEDS ORDERED: Lidocaine 1% w/Epinephrine 1:200K 30 ML VIAL ONE (08:20)
[2022-03-11] MEDS ORDERED: Propofol 500 MG/50 ML VIAL ONE (08:50)
[2022-03-11] MEDS ORDERED: Lidocaine 2% 6 ML SYR ONE (08:50)
[2022-03-11] MEDS ORDERED: fentaNYL Citrate/PF 100 MCG/2 ML SYRINGE ONE (08:55)
[2022-03-11] MEDS ORDERED: Clindamycin/D5W 900 mg/50 ml Premix Bag ONE (09:27)
[2022-03-11] MEDS ORDERED: ePHEDrine 50 MG/ML VIAL ONE (09:35)
[2022-03-11] MEDS ORDERED: Ondansetron PF 4 MG/2 ML Vial ONE (09:35)
[2022-03-11] MEDS ORDERED: Bacitracin Zinc Ointment 30 gm TUBE ONE (10:15)
[2022-03-11] MEDS ORDERED: HYDROcodone/Acetaminophen 5/325 mg Tablet ONE (11:18)
== END 2022-03-11 12:00 | disposition home or self-care (01) ==
LOC: SDC 07:24
PROVIDERS: ATTEND Student in an Organized Health Care Education/Training Program
PROC: 03BS0ZX Excision of Right Temporal Artery, Open Approach, Diagnostic (ICD-10-PCS; principal; 2022-03-11)
DX: M31.6 Other giant cell arteritis (principal); R51.9 Headache, unspecified; R70.0 Elevated erythrocyte sedimentation rate; I10 Essential (primary) hypertension; E03.9 Hypothyroidism, unspecified; K21.9 Gastro-esophageal reflux disease without esophagitis; E11.43 Type 2 diabetes mellitus with diabetic autonomic (poly)neuropathy; K31.84 Gastroparesis; J45.909 Unspecified asthma, uncomplicated; L40.50 Arthropathic psoriasis, unspecified; M45.9 Ankylosing spondylitis of unspecified sites in spine; G89.29 Other chronic pain; M54.9 Dorsalgia, unspecified; E66.01 Morbid (severe) obesity due to excess calories; Z68.41 Body mass index [BMI] 40.0-44.9, adult; Z87.891 Personal history of nicotine dependence; Z79.1 Long term (current) use of non-steroidal anti-inflammatories (NSAID); Z79.52 Long term (current) use of systemic steroids; Z79.890 Hormone replacement therapy; Z79.4 Long term (current) use of insulin; Z79.899 Other long term (current) drug therapy; Z96.41 Presence of insulin pump (external) (internal); Z88.0 Allergy status to penicillin; Z91.040 Latex allergy status; Z91.041 Radiographic dye allergy status; Z88.2 Allergy status to sulfonamides; Z88.8 Allergy status to other drugs, medicaments and biological substances; Z91.012 Allergy to eggs; Z91.018 Allergy to other foods
CPT/HCPCS: 88305; C1776; J2405; J2704; J3490

== ENCOUNTER 2022-05-08 08:48 | Outpatient (CLI) | payer BC, MEDICARE | END 2022-05-08 08:49 | disposition home or self-care (01) | LOC: BICMAMMO 08:48 | PROVIDERS: ATTEND Family Medicine | DX: Z12.31 Encounter for screening mammogram for malignant neoplasm of breast (principal); N95.9 Unspecified menopausal and perimenopausal disorder; M85.851 Other specified disorders of bone density and structure, right thigh; M85.852 Other specified disorders of bone density and structure, left thigh; Z80.3 Family history of malignant neoplasm of breast | CPT/HCPCS: 77063; 77067; 77080 ==

== ENCOUNTER 2022-05-10 09:15 | Inpatient (IN) | payer BC, MEDICARE ==
[2022-05-10] MEDS ORDERED: Acetaminophen 500 MG TAB ONE (10:40)
[2022-05-10 11:57] LABS: SARS-CoV-2 NAA Rapid Test Not Detected (NotDetected)
[2022-05-10 13:06] LABS: Hemoglobin 13.4 g/dL (12.0-16.0); Mean Corpuscular HGB CONC 31.3 g/dL (32.0-36.0); Mean Corpuscular Hemoglobin 29.7 pg (27.0-31.0); Mean Corpuscular Volume 95.1 fL (78.0-98.0); Mean Platelet Volume 7.5 fL (7.4-10.4); Platelet Count 343 thou/uL (130-400); RBC Distribution Width 14.8 % (11.5-14.5); White Blood Cell (WBC) Count 24.6 thou/uL (4.8-10.8)
[2022-05-10 13:20] LABS: ALT (SGPT) 51 U/L (8-55); AST (SGOT) 37 U/L (5-34); Albumin 3.2 g/dL (3.5-5.0); Alkaline Phosphatase 108 U/L (40-110); Anion Gap 15 mmol/L (10-20); BUN (Urea Nitrogen) 16 mg/dL (9.8-20.1); Bilirubin, Total 0.4 mg/dL (0.2-1.2); Calc. Creatinine Clearance 0 mL/min (70-130); Calcium 9.2 mg/dL (7.8-10.44); Carbon Dioxide 25 mmol/L (22-29); Chloride 100 mmol/L (98-107); Estimated GFR 81; Globulin 3.7 g/dL (2.4-3.5); Glucose 156 mg/dL (70-105); Potassium 3.3 mmol/L (3.5-5.1); Protein, Total 6.9 g/dL (6.0-8.3); Sodium 137 mmol/L (136-145)
[2022-05-10 13:21] LABS: Band 16 % (5-11); Lymphocytes 5 % (21-51); MDiff Complete? YES; Monocytes 1 % (0-10); Neutrophil 77 % (42-75); Platelet Morphology Comment Appears Adequate; RBC Morphology Normal; Reactive Lymphocytes 1 % (0-10)
[2022-05-10] MEDS ORDERED: Potassium Chloride 20 MEQ TAB ONE (14:14)
[2022-05-10 14:47] LABS: Bacteria/HPF 4+ HPF (None Seen); Bilirubin Negative (Negative); Blood, Urine Trace (Negative); Clarity Turbid (Clear); Glucose, Urine (Dipstick) 300 mg/dL (Negative); Ketone, Urine Negative (Negative); Leukocyte 500 Leu/uL (Negative); Nitrite 2+ (Negative); Protein, Urine (Dipstick) Negative (Neg-Trace); Specific Gravity, Urine 1.011 (1.002-1.036); Squamous Epithelial 0-3 HPF (0-3); Urobilinogen Normal mg/dL (Less than 2); WBC/HPF 21-50 HPF (0-3)
[2022-05-10] MEDS ORDERED: Vancomycin 1 GM/200 ML BAG ONE (15:34)
[2022-05-10] MEDS ORDERED: Ondansetron ODT 4 MG TAB PO PRN (15:36)
[2022-05-10] MEDS ORDERED: Ondansetron PF 4 MG/2 ML Vial IVP PRN (15:36)
[2022-05-10] MEDS ORDERED: Meropenem 1 GM in Sterile Water 20 ML SLOW IVP SCH (15:45)
[2022-05-10] MEDS ORDERED: Dextrose 50% Abboject 50 ML SYRINGE SLOW IVP PRN (16:41)
[2022-05-10] MEDS ORDERED: Dextrose 5% in Water 1,000 ML IV PRN (16:41)
[2022-05-10 17:21] VITALS: BMI 40.7
[2022-05-10] MEDS: Sodium Chloride 0.9% 1,000 ML IV SCH ×2 (17:48)
[2022-05-10] MEDS ORDERED: Meropenem 1 GM in Sodium Chloride 0.9% 100 ML IVPB SCH (18:00)
[2022-05-10] MEDS: Acetaminophen 325 MG TAB PO PRN (20:35)
[2022-05-10] MEDS ORDERED: Ibuprofen 200 MG TAB PO PRN (22:29)
[2022-05-11] MEDS: Acetaminophen 325 MG TAB PO PRN ×2 (00:11→15:15)
[2022-05-11] MEDS ORDERED: Meropenem 1 GM in Sodium Chloride 0.9% 100 ML IVPB SCH (02:00)
[2022-05-11] MEDS: Sodium Chloride 0.9% 1,000 ML IV SCH ×5 (03:55→23:00)
[2022-05-11 06:58] LABS: #Lymphocytes 1.1 thou/uL (1.20-3.40); #Neutrophils 23.9 thou/uL (1.40-6.50); %Basophils 0.1 % (0.0-1.0); %Eosinophils 0.1 % (0.0-10.0); %Lymphocytes 4.1 % (21.0-51.0); %Neutrophils 91.8 % (42.0-75.0); Hemoglobin 12.8 g/dL (12.0-16.0); Mean Corpuscular HGB CONC 30.4 g/dL (32.0-36.0); Mean Corpuscular Hemoglobin 29.1 pg (27.0-31.0); Mean Corpuscular Volume 95.8 fL (78.0-98.0); Mean Platelet Volume 7.9 fL (7.4-10.4); Platelet Count 303 thou/uL (130-400); Red Blood Cell (RBC) Count 4.39 mill/uL (4.20-5.40); White Blood Cell (WBC) Count 26.1 thou/uL (4.8-10.8)
[2022-05-11 07:31] LABS: Anion Gap 13 mmol/L (10-20); BUN (Urea Nitrogen) 14 mg/dL (9.8-20.1); Calc. Creatinine Clearance 164 mL/min (70-130); Calcium 8.9 mg/dL (7.8-10.44); Carbon Dioxide 25 mmol/L (22-29); Chloride 104 mmol/L (98-107); Estimated GFR 101; Glucose 93 mg/dL (70-105); Potassium 4.2 mmol/L (3.5-5.1); Sodium 138 mmol/L (136-145)
[2022-05-11] MEDS: Enoxaparin Sodium 40 MG/0.4 ML SYRINGE SC SCH (09:01)
[2022-05-11] MEDS ORDERED: Ciprofloxacin HCL/Dexameth Otic Drops 7.5 ml Bottle R EAR SCH (10:15)
[2022-05-11] MEDS ORDERED: SUMAtriptan Succinate 50 MG TAB PO PRN (11:07)
[2022-05-11] MEDS ORDERED: SUMAtriptan Succinate 6 MG/0.5 ML VIAL SC SCH (11:15)
[2022-05-11] MEDS: Topiramate 25 MG TAB PO SCH ×3 (15:16→21:49)
[2022-05-11] MEDS: Ciprofloxacin HCL/Dexameth Otic Drops 7.5 ml Bottle R EAR SCH ×2 (15:17→21:37)
[2022-05-11] MEDS: Albuterol Sulfate 2.5 mg/0.5 ml Neb NEB SCH (18:57)
[2022-05-11] MEDS: Mometasone 200 MCG/Formoterol 5 MCG 120 PUFF INHALER INH SCH (18:58)
[2022-05-11] MEDS: Montelukast Sodium 10 mg Tablet PO SCH ×2 (21:38→21:50)
[2022-05-11] MEDS: Loratadine 10 MG TAB PO SCH ×2 (21:39→21:49)
[2022-05-11] MEDS: Pregabalin 75 MG CAP PO SCH ×2 (21:39→21:54)
[2022-05-11] MEDS: Rosuvastatin 20 MG TAB PO SCH ×2 (21:39→21:49)
[2022-05-11] MEDS: Lidocaine 5% Patch TD SCH (21:40)
[2022-05-12] MEDS: Levothyroxine 150 MCG TAB PO SCH (06:10)
[2022-05-12 06:49] LABS: #Lymphocytes 1.1 thou/uL (1.20-3.40); #Monocytes 0.6 thou/uL (0.11-0.59); #Neutrophils 20.3 thou/uL (1.40-6.50); %Basophils 0.1 % (0.0-1.0); %Eosinophils 0.1 % (0.0-10.0); %Lymphocytes 5.1 % (21.0-51.0); %Monocytes 2.6 % (0.0-10.0); %Neutrophils 92.1 % (42.0-75.0); Mean Corpuscular HGB CONC 31.4 g/dL (32.0-36.0); Mean Corpuscular Hemoglobin 29.9 pg (27.0-31.0); Mean Corpuscular Volume 95.4 fL (78.0-98.0); Mean Platelet Volume 8.1 fL (7.4-10.4); Platelet Count 260 thou/uL (130-400); RBC Distribution Width 14.5 % (11.5-14.5); Red Blood Cell (RBC) Count 4.34 mill/uL (4.20-5.40)
[2022-05-12 06:51] LABS: Anion Gap 13 mmol/L (10-20); BUN (Urea Nitrogen) 10 mg/dL (9.8-20.1); Calc. Creatinine Clearance 178 mL/min (70-130); Carbon Dioxide 25 mmol/L (22-29); Chloride 107 mmol/L (98-107); Estimated GFR 103; Glucose 76 mg/dL (70-105); Potassium 3.3 mmol/L (3.5-5.1); Sodium 142 mmol/L (136-145)
[2022-05-12] MEDS: Mometasone 200 MCG/Formoterol 5 MCG 120 PUFF INHALER INH SCH ×2 (06:54→19:14)
[2022-05-12] MEDS: Albuterol Sulfate 2.5 mg/0.5 ml Neb NEB SCH ×3 (06:56→19:12)
[2022-05-12] MEDS: Sodium Chloride 0.9% 1,000 ML IV SCH ×3 (07:37→17:27)
[2022-05-12] MEDS: Cholecalciferol 1,000 UNITS (25 MCG) TAB PO SCH (08:49)
[2022-05-12] MEDS: Enoxaparin Sodium 40 MG/0.4 ML SYRINGE SC SCH (08:50)
[2022-05-12] MEDS: Furosemide 40 MG TAB PO SCH (08:50)
[2022-05-12] MEDS: Topiramate 25 MG TAB PO SCH ×3 (08:50→20:34)
[2022-05-12] MEDS: Pregabalin 75 MG CAP PO SCH ×2 (08:50→20:34)
[2022-05-12] MEDS: Empagliflozin 25 MG TAB PO SCH (08:50)
[2022-05-12] MEDS: Ciprofloxacin HCL/Dexameth Otic Drops 7.5 ml Bottle R EAR SCH ×3 (08:50→20:36)
[2022-05-12] MEDS: Acetaminophen 325 MG TAB PO PRN (08:51)
[2022-05-12] MEDS ORDERED: Non-Formulary Item 1 EACH (Olopatadine Hcl [Pataday] 2.5 ML Bottle) EA EYE SCH (09:00)
[2022-05-12] MEDS ORDERED: Non-Formulary Item 1 EACH (Vitamin B Complex [Vitamin B Complex] 1 EACH Tablet) PO SCH (09:00)
[2022-05-12] MEDS: Transdermal Patch Removal TOP SCH (09:03)
[2022-05-12] MEDS: Ascorbic Acid 500 mg Chewable Tablet PO SCH (09:40)
[2022-05-12] MEDS: Stress 600 With Zinc 1 TAB PO SCH (09:40)
[2022-05-12] MEDS: predniSONE 20 MG TAB PO SCH ×2 (09:40→20:33)
[2022-05-12] MEDS: Metoclopramide HCl 10 MG TAB PO SCH ×2 (09:40→16:22)
[2022-05-12] MEDS ORDERED: Potassium Chloride 20 MEQ TAB PO SCH (09:45)
[2022-05-12] MEDS: Montelukast Sodium 10 mg Tablet PO SCH (20:33)
[2022-05-12] MEDS: Rosuvastatin 20 MG TAB PO SCH (20:34)
[2022-05-12] MEDS: Loratadine 10 MG TAB PO SCH (20:34)
[2022-05-12] MEDS: Losartan 25 MG TAB PO SCH (20:34)
[2022-05-12] MEDS: Lidocaine 5% Patch TD SCH (20:35)
[2022-05-13] MEDS: Sodium Chloride 0.9% 1,000 ML IV SCH ×3 (05:39→21:36)
[2022-05-13] MEDS: Levothyroxine 150 MCG TAB PO SCH (05:39)
[2022-05-13 05:54] LABS: #Lymphocytes 0.7 thou/uL (1.20-3.40); #Monocytes 0.6 thou/uL (0.11-0.59); #Neutrophils 19.3 thou/uL (1.40-6.50); %Lymphocytes 3.3 % (21.0-51.0); %Neutrophils 93.7 % (42.0-75.0); Hemoglobin 11.3 g/dL (12.0-16.0); Mean Corpuscular HGB CONC 30.1 g/dL (32.0-36.0); Mean Corpuscular Hemoglobin 28.8 pg (27.0-31.0); Mean Corpuscular Volume 95.7 fL (78.0-98.0); Mean Platelet Volume 7.8 fL (7.4-10.4); Platelet Count 262 thou/uL (130-400); RBC Distribution Width 14.6 % (11.5-14.5); Red Blood Cell (RBC) Count 3.92 mill/uL (4.20-5.40); White Blood Cell (WBC) Count 20.6 thou/uL (4.8-10.8)
[2022-05-13 06:06] LABS: Anion Gap 14 mmol/L (10-20); BUN (Urea Nitrogen) 9 mg/dL (9.8-20.1); Calc. Creatinine Clearance 187 mL/min (70-130); Calcium 8.6 mg/dL (7.8-10.44); Carbon Dioxide 23 mmol/L (22-29); Chloride 107 mmol/L (98-107); Estimated GFR 104; Glucose 74 mg/dL (70-105); Potassium 3.1 mmol/L (3.5-5.1); Sodium 141 mmol/L (136-145)
[2022-05-13] MEDS: Albuterol Sulfate 2.5 mg/0.5 ml Neb NEB SCH ×3 (07:47→19:00)
[2022-05-13] MEDS: Mometasone 200 MCG/Formoterol 5 MCG 120 PUFF INHALER INH SCH ×2 (07:48→19:01)
[2022-05-13] MEDS: Metoclopramide HCl 10 MG TAB PO SCH ×3 (08:01→17:16)
[2022-05-13] MEDS ORDERED: Potassium Chloride 20 MEQ TAB PO SCH (08:30)
[2022-05-13] MEDS: Cholecalciferol 1,000 UNITS (25 MCG) TAB PO SCH (09:23)
[2022-05-13] MEDS: Ascorbic Acid 500 mg Chewable Tablet PO SCH (09:23)
[2022-05-13] MEDS: Empagliflozin 25 MG TAB PO SCH (09:23)
[2022-05-13] MEDS: Pregabalin 75 MG CAP PO SCH ×2 (09:24→21:28)
[2022-05-13] MEDS: Enoxaparin Sodium 40 MG/0.4 ML SYRINGE SC SCH (09:24)
[2022-05-13] MEDS: predniSONE 20 MG TAB PO SCH (09:24)
[2022-05-13] MEDS: Stress 600 With Zinc 1 TAB PO SCH (09:24)
[2022-05-13] MEDS: Topiramate 25 MG TAB PO SCH ×3 (09:24→21:28)
[2022-05-13] MEDS: Furosemide 40 MG TAB PO SCH (09:24)
[2022-05-13] MEDS: Ciprofloxacin HCL/Dexameth Otic Drops 7.5 ml Bottle R EAR SCH ×3 (09:25→21:29)
[2022-05-13] MEDS: Transdermal Patch Removal TOP SCH (09:26)
[2022-05-13] MEDS: Ketotifen Fumarate 0.025% Ophth Soln 5 ml Bottle EA EYE SCH (10:51)
[2022-05-13] MEDS: Acetaminophen 325 MG TAB PO PRN (11:50)
[2022-05-13] MEDS: Rosuvastatin 20 MG TAB PO SCH (21:27)
[2022-05-13] MEDS: Loratadine 10 MG TAB PO SCH (21:28)
[2022-05-13] MEDS: Lidocaine 5% Patch TD SCH (21:29)
[2022-05-13] MEDS: Montelukast Sodium 10 mg Tablet PO SCH (21:29)
[2022-05-13] MEDS: Losartan 25 MG TAB PO SCH (21:29)
[2022-05-13] MEDS ORDERED: predniSONE 20 MG TAB PO SCH (22:30)
[2022-05-14] MEDS: Levothyroxine 150 MCG TAB PO SCH (05:50)
[2022-05-14 06:13] LABS: #Lymphocytes 0.6 thou/uL (1.20-3.40); #Monocytes 0.5 thou/uL (0.11-0.59); #Neutrophils 16.4 thou/uL (1.40-6.50); %Eosinophils 0.1 % (0.0-10.0); %Lymphocytes 3.5 % (21.0-51.0); %Monocytes 2.7 % (0.0-10.0); %Neutrophils 93.7 % (42.0-75.0); Hemoglobin 10.9 g/dL (12.0-16.0); Mean Corpuscular HGB CONC 30.6 g/dL (32.0-36.0); Mean Corpuscular Volume 94.8 fL (78.0-98.0); Mean Platelet Volume 7.8 fL (7.4-10.4); Platelet Count 278 thou/uL (130-400); RBC Distribution Width 14.4 % (11.5-14.5); Red Blood Cell (RBC) Count 3.77 mill/uL (4.20-5.40); White Blood Cell (WBC) Count 17.5 thou/uL (4.8-10.8)
[2022-05-14 06:57] LABS: Anion Gap 10 mmol/L (10-20); BUN (Urea Nitrogen) 8 mg/dL (9.8-20.1); Calc. Creatinine Clearance 191 mL/min (70-130); Calcium 8.5 mg/dL (7.8-10.44); Carbon Dioxide 25 mmol/L (22-29); Chloride 108 mmol/L (98-107); Estimated GFR 105; Glucose 80 mg/dL (70-105); Potassium 3.4 mmol/L (3.5-5.1); Sodium 140 mmol/L (136-145)
[2022-05-14] MEDS: Mometasone 200 MCG/Formoterol 5 MCG 120 PUFF INHALER INH SCH (07:17)
[2022-05-14] MEDS: Albuterol Sulfate 2.5 mg/0.5 ml Neb NEB SCH (07:17)
[2022-05-14] MEDS: Metoclopramide HCl 10 MG TAB PO SCH ×2 (08:03→12:42)
[2022-05-14] MEDS ORDERED: predniSONE 20 MG TAB PO SCH (09:00)
[2022-05-14] MEDS ORDERED: Potassium Chloride 20 MEQ TAB PO SCH (09:00)
[2022-05-14] MEDS: Acetaminophen 325 MG TAB PO PRN (09:28)
[2022-05-14] MEDS: Enoxaparin Sodium 40 MG/0.4 ML SYRINGE SC SCH (09:28)
[2022-05-14] MEDS: Cholecalciferol 1,000 UNITS (25 MCG) TAB PO SCH (09:29)
[2022-05-14] MEDS: Ascorbic Acid 500 mg Chewable Tablet PO SCH (09:30)
[2022-05-14] MEDS: Furosemide 40 MG TAB PO SCH (09:30)
[2022-05-14] MEDS: Topiramate 25 MG TAB PO SCH ×2 (09:30→15:53)
[2022-05-14] MEDS: Pregabalin 75 MG CAP PO SCH (09:30)
[2022-05-14] MEDS: Empagliflozin 25 MG TAB PO SCH (09:30)
[2022-05-14] MEDS: Stress 600 With Zinc 1 TAB PO SCH (09:31)
[2022-05-14] MEDS: Ciprofloxacin HCL/Dexameth Otic Drops 7.5 ml Bottle R EAR SCH ×2 (09:31→15:53)
[2022-05-14] MEDS: Transdermal Patch Removal TOP SCH (09:31)
[2022-05-14] MEDS: Ketotifen Fumarate 0.025% Ophth Soln 5 ml Bottle EA EYE SCH (09:31)
[2022-05-14] MEDS: Sodium Chloride 0.9% 1,000 ML IV SCH (10:23)
[2022-05-14 12:45] VITALS: BP 97/67; TEMP 97.7
== END 2022-05-14 16:08 | disposition home or self-care (01) | DRG 872 ==
LOC: ERS 09:15 → T4-A 15:41
PROVIDERS: ADMIT Internal Medicine; ATTEND Internal Medicine
DX: A41.51 Sepsis due to Escherichia coli [E. coli] (principal); N39.0 Urinary tract infection, site not specified; Z16.19 Resistance to other specified beta lactam antibiotics; Z16.29 Resistance to other single specified antibiotic; Z68.41 Body mass index [BMI] 40.0-44.9, adult; Z20.822 Contact with and (suspected) exposure to COVID-19; Z96.41 Presence of insulin pump (external) (internal); E03.9 Hypothyroidism, unspecified; F32.A Depression, unspecified; E87.6 Hypokalemia; J45.909 Unspecified asthma, uncomplicated; E11.40 Type 2 diabetes mellitus with diabetic neuropathy, unspecified; H66.91 Otitis media, unspecified, right ear; G44.009 Cluster headache syndrome, unspecified, not intractable; E66.01 Morbid (severe) obesity due to excess calories; Z98.1 Arthrodesis status; Z88.1 Allergy status to other antibiotic agents; Z91.012 Allergy to eggs; Z91.040 Latex allergy status; Z88.0 Allergy status to penicillin; Z88.2 Allergy status to sulfonamides; Z88.8 Allergy status to other drugs, medicaments and biological substances; Z91.018 Allergy to other foods; Z79.899 Other long term (current) drug therapy; Z79.890 Hormone replacement therapy; Z79.4 Long term (current) use of insulin; Z79.52 Long term (current) use of systemic steroids; Z83.3 Family history of diabetes mellitus; Z87.891 Personal history of nicotine dependence
CPT/HCPCS: 36415; 36416; 71045; 80048; 80053; 81003; 81015; 83605; 85025; 87040; 87076; 87077; 87086; 87186; 93005; 94640; 96374; J1650; J1956; J2185; J3370; J7050; J7512; J7611

== ENCOUNTER 2022-05-22 13:03 | Outpatient (CLI) | payer BC, MEDICARE | END 2022-05-22 13:04 | disposition home or self-care (01) | LOC: BICCT 13:03 | PROVIDERS: ATTEND Otolaryngology Plastic Surgery within the Head & Neck | DX: H65.21 Chronic serous otitis media, right ear (principal); H92.11 Otorrhea, right ear; H74.8X1 Other specified disorders of right middle ear and mastoid; H73.891 Other specified disorders of tympanic membrane, right ear | CPT/HCPCS: 70480 ==